=== PATIENT | female | born 1985 | race Caucasian/White ===

== ENCOUNTER 2017-11-22 17:15 | Emergency (ER) | payer OTHER ==
[2017-11-22 18:49] VITALS: BP 109/65
--- NOTE | 2017-11-22 19:03 | UC ---
Lower Extremity/Ankle HPI - HPI Summary HPI Summary: 31 y/o female presents to the urgent care c/o ingrown nail on left great toe, states it began about a week ago. Last night she used nail clippers to dig at it, today redness and pain increased. Pain is 8/10 at touch localized in the medial aspect of left toe. Pt denies fever, numbness and tingling sensation, SOB. chest pain, abdominal pain, N/V/D. No Hx of MRSA. - History of Current Complaint Chief Complaint: UCSkin Stated Complaint: TOE ON LEFT FOOT INFECTED Time Seen by Provider: 11/22/17 18:52 Hx Obtained From: Patient Hx Last Menstrual Period: unknown, nexplanon ?: No Onset/Duration: Gradual Onset, Lasting Weeks - 1 week, Worse Since - yesterday Severity Initially: Mild Severity Currently: Moderate Pain Intensity: 8 Pain Scale Used: 0-10 Numeric Aggravating Factor(s): Ambulation Alleviating Factor(s): Rest Able to Bear Weight: Yes - Risk Factors Gout Risk Factors: Negative DVT Risk Factors: Negative Septic Arthritis Risk Factor: Negative - Allergies/Home Medications Allergies/Adverse Reactions: Allergies Allergy/AdvReac Type Severity Reaction Status Date / Time No Known Allergies Allergy Verified 11/22/17 18:46 PMH/Surg Hx/FS Hx/Imm Hx Previously Healthy: Yes - Pt denies PMHX - Surgical History Surgical History: None - Family History Known Family History: Positive: None - Pt denies FMHX - Social History Occupation: Employed Full-time Lives: With Family Alcohol Use: None Substance Use Type: None Smoking Status (MU): Light Every Day Tobacco Smoker Type: Cigarettes Amount Used/How Often: /4 - 1/3 PPD Length of Time of Smoking/Using Tobacco: 18 Years Have You Smoked in the Last Year: Yes - Immunization History Most Recent Influenza Vaccination: Not the 2015/2015 Season Review of Systems Constitutional: Negative Skin: Other - left big toe red and swelling s/p removal on ingrown toe nail Eyes: Negative ENT: Negative Respiratory: Negative Cardiovascular: Negative Gastrointestinal: Negative Genitourinary: Negative Motor: Negative Neurovascular: Negative Musculoskeletal: Other: - left big toe pain Neurological: Negative Psychological: Negative Is Patient Immunocompromised?: No All Other Systems Reviewed And Are Negative: Yes Physical Exam - Summary Physical Exam Summary: Vital Signs Reviewed: Yes General: well developed, well nourished female sitting in the examining table w/ o any apparent distress Eye Exam: Normal Eyes: Positive: Conjunctiva Clear - PERRLA, EOMI, fundi grossly normal ENT: Positive: Normal ENT inspection, Hearing grossly normal, Pharynx normal, TMs normal Neck: Positive: Supple, Nontender, No Lymphadenopathy Respiratory: Positive: Chest non-tender, Lungs clear, Normal breath sounds, No respiratory distress Cardiovascular: Positive: RRR, No Murmur, Pulses Normal, Brisk Capillary Refill Abdomen Description: Positive: Nontender, No Organomegaly, Soft. Negative: CVA Tenderness (R), CVA Tenderness (L) Bowel Sounds: Positive: Present Musculoskeletal: Positive: Strength Intact, ROM Intact, No Edema Neurological: Positive: Alert, Muscle Tone Normal Psychological Exam: Normal Skin: Positive: tip of the medial aspect of LF # 1 toe erythema and swelling , tender to palpation, Pt cut the nail toe,but left a sharp point that punctures the soft tissue. FROM of all toes, sensation is intact, capillary refill WNL, reflexes WNL Triage Information Reviewed: Yes Vital Signs: Initial Vital Signs Temp 98.4 F 11/22/17 18:43 Pulse 70 11/22/17 18:43 Resp 18 11/22/17 18:43 BP 109/65 11/22/17 18:43 Pulse Ox 100 11/22/17 18:43 Lower Extremity Course/Dx - Course Course Of Treatment: 31 y/o female presents to the urgent care c/o ingrown nail on left great toe, states it began about a week ago. Last night she used nail clippers to dig at it, today redness and pain increased. Pain is 8/10 at touch localized in the medial aspect of left toe. Pt denies fever, numbness and tingling sensation, SOB. chest pain, abdominal pain, N/V/D. No Hx of MRSA. Hx obtained. Pt w/ tip of the medial aspect of LF # 1 toe w/ erythema and swelling , tender to palpation, Pt cut the nail toe,but left a sharp point that punctures the soft tissue.The sharp tip of toenail was cut w/ nail clipper and pt felt better. Wound culture taken from area and sent to lab. Area cleaned w/ iodine swabs and bacitracin ointment applied. Pt Rx Keflex, Domeboro and IBacitracin oint to alleviate symptoms. D/C instructions explained. Pt understood and agreed w/ plan of care. - Differential Dx/Diagnosis Differential Diagnosis/HQI/PQRI: Cellulitis, Puncture Wound, Other - ingrown toe nail, paronychia, felon Provider Diagnoses: 1- Cellulitis of left first toe Discharge - Sign-Out/Discharge Documenting (check all that apply): Discharge/Admit/Transfer - D/C home - Discharge Plan Condition: Stable Disposition: HOME Prescriptions: Aluminum Sulf/Ca Acetate MOISE* [Domeboro MOISE*] 1 applic TOPICAL DAILY #1 box Bacitracin OINTMENT* 1 applic TOPICAL BID #1 tube Cephalexin CAP* [Keflex CAP*] 500 mg PO QID #28 cap Patient Education Materials: Ingrown Nail (ED) Forms: *Work Release Referrals: India Domingo MD [Primary Care Provider] - 2 Days Additional Instructions: 1-Please take full course of antibiotic to avoid resistance. Keep wound clean and dry. Apply bacitracin topical as directed 2- soak your left toe on Domeboro w/ warm water as directed 3-. Take Ibuprofen PO q6-8hrs prn for pain or swelling. 4-If you develop fever or redness despite antibiotic please go to the ER immediately or return to the Urgent care. 5- Wound culture sent to lab, if any abnormal result you will receive a call from us. - Billing Disposition and Condition Condition: STABLE Disposition: HOME
== END 2017-11-22 19:37 | disposition home or self-care (01) ==
LOC: UCCORT 17:15
DX: L03.032 Cellulitis of left toe (principal); F17.210 Nicotine dependence, cigarettes, uncomplicated
CPT/HCPCS: 87070; 87077; 87205; 87640; 87641; 99212; G0463

== ENCOUNTER 2018-07-03 16:45 | Emergency (ER) | payer OTHER ==
[2018-07-03 17:50] VITALS: BP 127/71
--- NOTE | 2018-07-03 17:53 | UC ---
Throat Pain/Nasal Otto HPI - HPI Summary HPI Summary: The patient is a 32-year-old female with a one-day history of sore throat. She has had a mild headache and myalgias. She denies any high fever. She denies any nausea vomiting or diarrhea. She denies any chest pain or shortness of breath. - History of Current Complaint Chief Complaint: UCGeneralIllness Stated Complaint: ST,BODY ACHES Time Seen by Provider: 07/03/18 17:47 Hx Obtained From: Patient Hx Last Menstrual Period: uknown, implanon Onset/Duration: Gradual Onset, Lasting Hours Severity: Moderate Pain Intensity: 7 Pain Scale Used: 0-10 Numeric Cough: None - Allergies/Home Medications Allergies/Adverse Reactions: Allergies Allergy/AdvReac Type Severity Reaction Status Date / Time No Known Allergies Allergy Verified 07/03/18 17:47 Home Medications: Home Medications Ibuprofen TAB* [Motrin TAB* 400 MG] 400 mg PO Q6H PRN 07/03/18 [History Confirmed 07/03/18] PMH/Surg Hx/FS Hx/Imm Hx Previously Healthy: Yes - Surgical History Surgical History: None - Family History Known Family History: Negative: Cardiac Disease, Hypertension, Diabetes - Social History Alcohol Use: None Substance Use Type: None Smoking Status (MU): Light Every Day Tobacco Smoker Type: Cigarettes Amount Used/How Often: 1/4 - 1/3 PPD Length of Time of Smoking/Using Tobacco: 18 Years Have You Smoked in the Last Year: Yes - Immunization History Most Recent Influenza Vaccination: Not the Season Review of Systems All Other Systems Reviewed And Are Negative: Yes Constitutional: Positive: Fever, Chills Skin: Positive: Negative Eyes: Positive: Negative ENT: Positive: Sore Throat Respiratory: Positive: Negative Cardiovascular: Positive: Negative Gastrointestinal: Positive: Negative Genitourinary: Positive: Negative Motor: Positive: Negative Neurovascular: Positive: Negative Musculoskeletal: Positive: Negative Neurological: Positive: Negative Psychological: Positive: Negative Is Patient Immunocompromised?: No Physical Exam Triage Information Reviewed: Yes Appearance: Well-Appearing, No Pain Distress, Well-Nourished Vital Signs: Initial Vital Signs Temp 97.8 F 07/03/18 17:47 Pulse 89 07/03/18 17:47 Resp 15 07/03/18 17:47 BP 127/71 07/03/18 17:47 Pulse Ox 99 07/03/18 17:47 Vital Signs Reviewed: Yes Eyes: Positive: Conjunctiva Clear ENT: Negative: Hearing grossly normal, Nasal congestion, Nasal drainage, Tonsillar swelling, Tonsillar exudate, Muffled voice, Hoarse voice Neck: Positive: Supple, Nontender, No Lymphadenopathy Respiratory: Positive: Lungs clear, Normal breath sounds, No respiratory distress Cardiovascular: Positive: RRR, No Murmur Musculoskeletal: Positive: ROM Intact, No Edema Neurological: Positive: Alert Psychological Exam: Normal Skin Exam: Normal Diagnostics - Laboratory Diagnostic Studies Completed/Ordered: strep (-) Throat Pain/Nasal Course/Dx - Differential Dx/Diagnosis Provider Diagnosis: Pharyngitis Discharge - Sign-Out/Discharge Documenting (check all that apply): Patient Departure All imaging exams completed and their final reports reviewed: No Studies - Discharge Plan Condition: Stable Disposition: HOME Patient Education Materials: Pharyngitis (ED) Forms: *Work Release Referrals: India Domingo MD [Primary Care Provider] - - Billing Disposition and Condition Condition: STABLE Disposition: Home
== END 2018-07-03 18:13 | disposition home or self-care (01) ==
LOC: UCCORT 16:45
DX: J02.9 Acute pharyngitis, unspecified (principal); F17.210 Nicotine dependence, cigarettes, uncomplicated
CPT/HCPCS: 87651; 99211; G0463